=== PATIENT | female | born 2000 | race Caucasian/White ===

== ENCOUNTER 2022-01-25 11:22 | Emergency (ER) | payer BC, OTHER ==
[~2022-01-25] VITALS: Ht 157.5 cm; Wt 54.0 kg
[2022-01-25 11:27] VITALS: BP 106/66
--- NOTE | 2022-01-25 11:35 | NUR ---
Patient ambulated to [facility]
--- NOTE | 2022-01-25 12:45 | NUR ---
PT CLEARED FOR D/C BY DR PAGE. PT LEFT WITHOUT D/C PAPERS, RX OF KEFLEX AND BACTRIM DS SENT TO PTS PHARM[facility],
[2022-01-25] MEDS ORDERED: SULF-59 PO (13:09)
[2022-01-25] MEDS ORDERED: CEPH-588 PO (13:09)
== END 2022-01-25 12:45 | disposition home or self-care (01) ==
LOC: MED 11:22
DX: L02.411 Cutaneous abscess of right axilla (principal); L03.111 Cellulitis of right axilla; Z79.899 Other long term (current) drug therapy; Z90.49 Acquired absence of other specified parts of digestive tract
CPT/HCPCS: 99283

== ENCOUNTER 2022-03-08 07:41 | Emergency (ER) | payer BC ==
[~2022-03-08] VITALS: Ht 157.5 cm; Wt 53.5 kg
[~2022-03-08 07:41] MED LIST: CEPH-588 PO; SULF-59 PO
[2022-03-08 07:58] VITALS: BP 118/79
--- NOTE | 2022-03-08 08:19 | NUR ---
22/F PRESENTS TO ED WITH C/O MID CHEST PAIN SINCE LAST NIGHT, STATES PAIN STARTED WHILE DRIVING AND HAS CONTINUED SINCE. PATIENT DENIES INJURY/TRAUMA, STATES SIMILAR SYMPTOMS IN THE RECENT PAST AND HAS A FOLLOW UP APPOINTMENT WITH HER PCP ON MONDAY. DENIES N/V/D, SOB.
[2022-03-08] MEDS ORDERED: FAMO-92 PO (09:35)
[2022-03-08 09:40] VITALS: BP 118/79
--- NOTE | 2022-03-08 09:41 | NUR ---
Patient discharged with v/s stable. Written and verbal after care instructions ABOUT CHEST WALL PAIN AND ESOPHAGITIS given and explained. Patient alert, oriented and verbalized understanding of instructions. Ambulatory with steady gait. All questions addressed prior to discharge. ID band removed. Patient advised to follow up with PMD. Rx of PEPCID given. Patient educated on indication of medication including possible reaction and side effects. Opportunity to ask questions provided and answered.
== END 2022-03-08 09:41 | disposition home or self-care (01) ==
LOC: MED 07:41
DX: R07.89 Other chest pain (principal); Z79.899 Other long term (current) drug therapy; Z90.49 Acquired absence of other specified parts of digestive tract
CPT/HCPCS: 93005; 99283

== ENCOUNTER 2022-04-25 10:15 | Emergency (ER) | payer BC ==
[~2022-04-25] VITALS: Ht 157.5 cm; Wt 53.6 kg
[~2022-04-25 10:15] MED LIST changes: +FAMO-92 PO
[2022-04-25 10:22] VITALS: BP 122/73
--- NOTE | 2022-04-25 10:30 | NUR ---
22YO FEMALE PT C/O RASH XYESTERDAY. STATES SUDDEN ONSET AFTER "EATING PIZZA" AND INITIALLY STARTING AT [place]IN. PRESENTS WITH REDDENED , ,MILD SWELLING , HOT TO TOUCH FACIAL RASH AROUND MOUTH, NOSE , CHEEKS AND DOWN NECK. DENIES PAIN , N/V/D, CHEST PAIN OR SOB. MILD RELIEF AFTER APPLYING ICE AND ALOE VERA. PT AAOX4, NO VISIBLE DISTRESS. RSPRIATIONS EVEN AND UNLABORED. HX:DENIES NKA
--- NOTE | 2022-04-25 11:06 | NUR ---
WALLY NEIL AT BEDSIDE FOR EVALUATION
[2022-04-25] MEDS ORDERED: LORATADINE 10 MG TAB PO ONE (11:15)
[2022-04-25] MEDS ORDERED: predniSONE 20 MG TAB PO ONE (11:15)
[2022-04-25] MEDS ORDERED: PRED20TA5 PO (11:36)
[2022-04-25] MEDS ORDERED: LORA10SG1 PO (11:36)
[2022-04-25] MEDS ORDERED: BEN50 PO (11:36)
[2022-04-25 11:57] VITALS: BP 124/78
--- NOTE | 2022-04-25 11:57 | NUR ---
Patient discharged with v/s stable. Written and verbal after care instructions FOR RASH given and explained. Patient alert, oriented and verbalized understanding of instructions. Ambulatory with steady gait. All questions addressed prior to discharge. ID band removed. Patient advised to follow up with PMD. Rx of BENADRYL, CLARITIN AND DELTASONE given. Opportunity to ask questions provided and answered.
--- NOTE | 2022-04-25 11:57 | NUR ---
The patient's care was reviewed and supervised by Ac Pink RN.
== END 2022-04-25 11:57 | disposition home or self-care (01) ==
LOC: MED 10:15
DX: R21 Rash and other nonspecific skin eruption (principal)
CPT/HCPCS: 99283; J7512

== ENCOUNTER 2022-06-11 07:51 | Emergency (ER) | payer BC, MEDICAID ==
[~2022-06-11] VITALS: Ht 157.5 cm; Wt 53.6 kg
[~2022-06-11 07:51] MED LIST changes: +BEN50 PO; +LORA10SG1 PO; +PRED20TA5 PO
[2022-06-11 08:06] VITALS: BP 107/62
[2022-06-11] MEDS ORDERED: ONDA-188 SL (08:51)
[2022-06-11] MEDS ORDERED: METO-485 PO (08:51)
--- NOTE | 2022-06-11 09:06 | NUR ---
22 Y/O FEMALE BIB SELF C/O GEN ABD PAIN WITH FOCUS ON THE EPIGASTRIC PAINXTODAY, PER PT [id number] EPISODES, TOOK PEPTO BISMOL WITH MINIMAL RELIEF. DENIES ANY DIARRHEA NKA PMH: DENIES
--- NOTE | 2022-06-11 09:10 | NUR ---
Patient discharged with v/s stable. Written and verbal after care instructions ABOUT NAUSEA AND VOMITING given and explained. Patient alert, oriented and verbalized understanding of instructions. Ambulatory with steady gait. All questions addressed prior to discharge. ID band removed. Patient advised to follow up with PMD. Rx of REGLAN AND ZOFRAN given. Patient educated on indication of medication including possible reaction and side effects. Opportunity to ask questions provided and answered.
== END 2022-06-11 09:10 | disposition home or self-care (01) ==
LOC: MED 07:51
DX: R11.2 Nausea with vomiting, unspecified (principal); R10.13 Epigastric pain; Z79.899 Other long term (current) drug therapy
CPT/HCPCS: 99283

== ENCOUNTER 2022-06-26 15:56 | Emergency (ER) | payer BC, MEDICAID ==
[~2022-06-26] VITALS: Ht 157.5 cm; Wt 54.1 kg
[~2022-06-26 15:56] MED LIST changes: +METO-485 PO; +ONDA-188 SL
[2022-06-26 16:35] VITALS: BP 109/58
--- NOTE | 2022-06-26 16:41 | NUR ---
Ed hughes in [facility] - 06/26/22 at 1642 by MED1 PT AMB TO BED 9
[2022-06-26] MEDS ORDERED: CEPH-588 PO (17:13)
[2022-06-26] MEDS ORDERED: IBUP-2213 PO (17:13)
--- NOTE | 2022-06-26 17:29 | NUR ---
Patient discharged with v/s stable. Written and verbal after care instructions FOR CELLULITIS given and explained. Patient alert, oriented and verbalized understanding of instructions. Ambulatory with steady gait. All questions addressed prior to discharge. ID band removed. Patient advised to follow up with PMD. Rx of KEFLEX AND IBUPROFEN given. Opportunity to ask questions provided and answered.
== END 2022-06-26 17:29 | disposition home or self-care (01) ==
LOC: MED 15:56
DX: L03.112 Cellulitis of left axilla (principal); L98.9 Disorder of the skin and subcutaneous tissue, unspecified; Z79.899 Other long term (current) drug therapy
CPT/HCPCS: 99283

== ENCOUNTER 2022-06-30 09:27 | Emergency (ER) | payer BC ==
[~2022-06-30] VITALS: Ht 157.5 cm; Wt 53.2 kg
[~2022-06-30 09:27] MED LIST changes: +IBUP-2213 PO
[2022-06-30 09:31] VITALS: BP 106/71
[2022-06-30 10:22] LABS: APPEARANCE,URINE CLEAR (CLEAR); BILIRUBIN,URINE NEGATIVE (NEGATIVE); BLOOD, URINE NEGATIVE (NEGATIVE); COLOR,URINE YELLOW (YELLOW); LEUKOCYTE ESTERASE ,URINE TRACE (NEGATIVE); NITRITE, URINE NEGATIVE (NEGATIVE); UGLUCOSE NEGATIVE (NEGATIVE)
--- NOTE | 2022-06-30 10:29 | NUR ---
BIB SELF C/O LIGHT HEADACHE, DIZZINESS X YESTERDAY. DENIES N/V/D;AAOX4 WITH EVEN AND STEADY GAIT; LUNGS CLEAR BL; HR EVEN AND REGULAR; PT DENIES ANY FEVER, CP, SOB, OR COUGH AT THIS TIME; PATIENT STATES PAIN OF 0/10 AT THIS TIME.
[2022-06-30 10:35] LABS: RBC,URINE 0-5 /HPF (0-5); WBC,URINE 0-5 /HPF (0-5)
[2022-06-30] MEDS ORDERED: CARB15DR61 OT (12:07)
[2022-06-30 12:16] VITALS: BP 106/71
--- NOTE | 2022-06-30 12:17 | NUR ---
Patient discharged with v/s stable. Written and verbal after care instructions given and explained. Patient alert, oriented and verbalized understanding of instructions. Ambulatory with steady gait. All questions addressed prior to discharge. ID band removed. Patient advised to follow up with PMD. Rx of carbamide (sent) given. Patient educated on indication of medication including possible reaction and side effects. Opportunity to ask questions provided and answered.
== END 2022-06-30 12:16 | disposition home or self-care (01) ==
LOC: MED 09:27
DX: H61.21 Impacted cerumen, right ear (principal); R42 Dizziness and giddiness; R68.83 Chills (without fever); Z79.899 Other long term (current) drug therapy
CPT/HCPCS: 81001; 81025; 99283

== ENCOUNTER 2022-08-05 21:10 | Emergency (ER) | payer BC ==
[~2022-08-05] VITALS: Ht 157.5 cm; Wt 54.4 kg
[~2022-08-05 21:10] MED LIST changes: +CARB15DR61 OT
[2022-08-05 21:19] VITALS: BP 128/72
--- NOTE | 2022-08-05 21:29 | NUR ---
TO BED 1 FROM TRIAGE
--- NOTE | 2022-08-05 21:41 | NUR ---
Patient resting in bed, A/Ox4, chest rise and fall symmetrical, no s/s of distress.
[2022-08-05] MEDS ORDERED: AMOXIL/CLAVULANATE 875/125 MG 1 TAB PO ONE (23:20)
--- NOTE | 2022-08-05 23:30 | NUR ---
Patient resting in bed, A/Ox4, chest rise and fall symmetrical, no c/o pain or s/s of distress
[2022-08-05] MEDS ORDERED: AMOX1TAB8 PO (23:38)
[2022-08-05] MEDS ORDERED: DEC4 PO (23:39)
[2022-08-05 23:46] VITALS: BP 122/85
== END 2022-08-05 23:46 | disposition home or self-care (01) ==
LOC: MED 21:10
DX: J02.0 Streptococcal pharyngitis (principal)
CPT/HCPCS: 99283

== ENCOUNTER 2022-12-19 10:15 | Emergency (ER) | payer BC ==
[~2022-12-19] VITALS: Ht 157.5 cm; Wt 53.5 kg
[~2022-12-19 10:15] MED LIST changes: +AMOX1TAB8 PO; +DEC4 PO
[2022-12-19 10:23] VITALS: BP 110/70
[2022-12-19] MEDS ORDERED: ACETAMINOPHEN EXTRA STRENGTH 500 MG TAB PO ONE (11:45)
[2022-12-19] MEDS ORDERED: KETOROLAC 30 MG/ML VIAL IM ONE (11:45)
[2022-12-19] MEDS ORDERED: CODE118S PO (14:16)
[2022-12-19] MEDS ORDERED: AZIT250T11 PO (14:16)
--- NOTE | 2022-12-19 14:34 | NUR ---
came in for worsening cough x 1 week, also c/o eye drainage and redness. denies any fever. PMH: denies Allergy: nka
[2022-12-19 14:38] VITALS: BP 111/66
--- NOTE | 2022-12-19 14:39 | NUR ---
Patient discharged with v/s stable. Written and verbal after care instructions given and explained. Patient alert, oriented and verbalized understanding of instructions. Ambulatory with steady gait. All questions addressed prior to discharge. ID band removed. Patient advised to follow up with PMD. Rx of AZITHROMYCIN, GUAIFENESIN W/ CODEINE given. Patient educated on indication of medication including possible reaction and side effects. Opportunity to ask questions provided and answered.
== END 2022-12-19 14:38 | disposition home or self-care (01) ==
LOC: MED 10:15
DX: J20.9 Acute bronchitis, unspecified (principal); Z79.899 Other long term (current) drug therapy
CPT/HCPCS: 71045; 99283

== ENCOUNTER 2023-01-04 10:42 | Emergency (ER) | payer BC ==
[~2023-01-04] VITALS: Ht 157.5 cm; Wt 53.5 kg
[~2023-01-04 10:42] MED LIST changes: +AZIT250T11 PO; +CODE118S PO
[2023-01-04 10:46] VITALS: BP 119/78; PULSE 76; RESP 16; TEMP 97.9; O2SAT 99
--- NOTE | 2023-01-04 10:50 | NUR ---
22 Y/O FEMALE BIB SELF, PATIENT PRESENTS TO ED WITH C/O FEELING DIZZY AND LIGHTHEADED SINC ELAST NIGHT. DENIES SYNCOPAL EPISODE. PT STATES SHE HAS TINGLING IN HANDS AND FEET, BUT WITH SOME IMPROVEMENT SINCE LAST NIGHT . DENIES N/V/D; SKIN IS PINK/WARM/DRY; AAOX4 WITH EVEN AND STEADY GAIT; LUNGS CLEAR BL; HR EVEN AND REGULAR; PT DENIES ANY FEVER, CP, SOB, OR COUGH AT THIS TIME; PATIENT STATES PAIN OF 0/10 AT THIS TIME; VSS; PATIENT POSITIONED FOR COMFORT; HOB ELEVATED; BEDRAILS UP X2; BED DOWN. ER MD MADE AWARE OF PT STATUS. PMH: DENIES NKA
--- NOTE | 2023-01-04 10:52 | NUR ---
pt ambulatory to bed 11
[2023-01-04] MEDS ORDERED: MECLIZINE 25 MG TAB PO ONE (12:30)
[2023-01-04] MEDS ORDERED: PSEUDOEPHEDRINE 30 MG TAB PO ONE (12:30)
[2023-01-04] MEDS ORDERED: MECL-303 PO (14:08)
[2023-01-04] MEDS ORDERED: SUD30 PO (14:08)
--- NOTE | 2023-01-04 14:13 | NUR ---
Patient discharged with v/s stable. Written and verbal after care instructions given and explained. Patient alert, oriented and verbalized understanding of instructions. Ambulatory with steady gait. All questions addressed prior to discharge. ID band removed. Patient advised to follow up with PMD. Rx of MICHAEL REID (SENT) given. Patient educated on indication of medication including possible reaction and side effects. Opportunity to ask questions provided and answered.
[2023-01-04 14:15] VITALS: BP 106/77; PULSE 69; RESP 18; TEMP 97.9; O2SAT 100
--- NOTE | 2023-01-04 14:17 | NUR ---
Note jeremyone in EDM - 01/04/23 at 1417 by [facility] Patient discharged with v/s stable. Written and verbal after care instructions given and explained. Patient alert, oriented and verbalized understanding of instructions. Ambulatory with steady gait. All questions addressed prior to discharge. ID band removed. Patient advised to follow up with PMD. Rx of MICHAEL REID (SENT) given. Patient educated on indication of medication including possible reaction and side effects. Opportunity to ask questions provided and answered.
== END 2023-01-04 14:13 | disposition home or self-care (01) ==
LOC: MED 10:42
DX: H81.392 Other peripheral vertigo, left ear (principal); Z79.899 Other long term (current) drug therapy
CPT/HCPCS: 81025; 93005; 99283; J8597

== ENCOUNTER 2023-02-18 02:54 | Emergency (ER) | payer BC ==
[~2023-02-18] VITALS: Ht 157.5 cm; Wt 52.2 kg
[~2023-02-18 02:54] MED LIST changes: +MECL-303 PO; +SUD30 PO
[2023-02-18 02:58] VITALS: BP 128/74; PULSE 88; RESP 20; TEMP 97.9; O2SAT 99
[2023-02-18] MEDS ORDERED: KETOROLAC 30 MG/ML VIAL IM ONE (06:45)
[2023-02-18] MEDS ORDERED: LIDOCAINE 5% 1 EA PATCH TP ONE (06:45)
[2023-02-18] MEDS ORDERED: IBUP-2213 PO (07:14)
[2023-02-18] MEDS ORDERED: LID5T TP (07:14)
[2023-02-18] MEDS ORDERED: CYCL-711 PO (07:14)
[2023-02-18 07:25] VITALS: BP 106/79; PULSE 74; RESP 17; O2SAT 98
== END 2023-02-18 07:26 | disposition home or self-care (01) ==
LOC: MED 02:54
DX: S29.012A Strain of muscle and tendon of back wall of thorax, initial encounter (principal); S21.209A Unspecified open wound of unspecified back wall of thorax without penetration into thoracic cavity, initial encounter; S29.011A Strain of muscle and tendon of front wall of thorax, initial encounter; Z79.899 Other long term (current) drug therapy; X58.XXXA Exposure to other specified factors, initial encounter; Y93.89 Activity, other specified; Y92.89 Other specified places as the place of occurrence of the external cause; Y99.8 Other external cause status
CPT/HCPCS: 71045; 96372; 99283; J1885

== ENCOUNTER 2023-03-18 21:22 | Emergency (ER) | payer BC ==
[~2023-03-18] VITALS: Ht 157.5 cm; Wt 52.6 kg
[~2023-03-18 21:22] MED LIST changes: +CYCL-711 PO; +LID5T TP
[2023-03-18 21:25] VITALS: BP 144/63; PULSE 55; RESP 22; TEMP 97.4; O2SAT 100
[2023-03-18 22:07] LABS: BASOPHILS # (AUTO) 0.1 K/uL (0.00-0.22); BASOPHILS % (AUTO) 0.5 % (0.0-2.0); EOSINOPHILS # (AUTO) 0.1 K/uL (0-0.4); EOSINOPHILS % (AUTO) 1.1 % (0.0-4.0); HEMATOCRIT 37.9 % (36-48); HEMOGLOBIN 12.9 g/dL (12.0-16.0); LYMPHOCYTES # (AUTO) 3.3 K/uL (2.5-16.5); LYMPHOCYTES % (AUTO) 28.1 % (20.5-51.1); MEAN CORPUSCULAR HEMOGLOBIN 27 pg (27-31); MEAN CORPUSCULAR HGB CONC 34 g/dL (33-37); MEAN CORPUSCULAR VOLUME 80.2 fL (80-94); MONOCYTES # (AUTO) 0.5 K/uL (0.8-1.0); MONOCYTES % (AUTO) 4.4 % (1.7-9.3); NEUTROPHILS # (AUTO) 7.8 K/uL (1.8-7.7); NEUTROPHILS % (AUTO) 65.9 % (42.2-75.2); PLATELET COUNT (AUTO) 369 K/uL (140-450); RED BLOOD CELL COUNT(AUTO) 4.73 MIL/uL (4.20-5.40); RED CELL DISTRIBUTION WIDTH 14.4 % (11.6-13.7); WHITE BLOOD COUNT (AUTO) 11.9 K/uL (4.8-10.8)
[2023-03-18 22:13] LABS: ANION GAP 18.3 (8-16); CALCIUM 8.7 mg/dL (8.5-10.1); CARBON DIOXIDE 21.8 mmol/L (21-32); POTASSIUM 3.1 mmol/L (3.5-5.1)
[2023-03-18 23:05] VITALS: BP 144/63; PULSE 55; RESP 22; TEMP 98; O2SAT 100
== END 2023-03-18 23:05 | disposition home or self-care (01) ==
LOC: MED 21:22
DX: F41.9 Anxiety disorder, unspecified (principal); R07.89 Other chest pain; R00.2 Palpitations; Z79.899 Other long term (current) drug therapy
CPT/HCPCS: 36415; 71045; 80048; 84484; 85025; 93005; 99285

== ENCOUNTER 2023-05-18 19:22 | Emergency (ER) | payer BC, MEDICAID ==
[~2023-05-18] VITALS: Ht 157.5 cm; Wt 52.2 kg
[2023-05-18 19:35] VITALS: BP 130/64; PULSE 90; RESP 17; TEMP 97.8; O2SAT 98
[2023-05-18 21:44] LABS: APPEARANCE,URINE CLEAR (CLEAR); BILIRUBIN,URINE NEGATIVE (NEGATIVE); BLOOD, URINE NEGATIVE (NEGATIVE); COLOR,URINE YELLOW (YELLOW); LEUKOCYTE ESTERASE ,URINE NEGATIVE (NEGATIVE); NITRITE, URINE NEGATIVE (NEGATIVE); PROTEIN,URINE NEGATIVE (NEGATIVE); UGLUCOSE NEGATIVE (NEGATIVE); UROBILINOGEN,URINE 0.2 EU/dL (0.2 - 1)
[2023-05-18] MEDS ORDERED: KETOROLAC 30 MG/ML VIAL ONE (23:42)
[2023-05-18] MEDS ORDERED: KETOROLAC 30 MG/ML VIAL IM ONE (23:45)
[2023-05-18] MEDS ORDERED: METR-435 PO (23:59)
[2023-05-18] MEDS ORDERED: NAPR-54 PO (23:59)
== END 2023-05-19 00:10 | disposition home or self-care (01) ==
LOC: MED 19:22
DX: N76.0 Acute vaginitis (principal); B96.89 Other specified bacterial agents as the cause of diseases classified elsewhere
CPT/HCPCS: 81003; 81025; 87210; 87491; 93005; 96372; 99284; J1885

== ENCOUNTER 2023-06-14 12:29 | Emergency (ER) | payer MEDICAID ==
[~2023-06-14] VITALS: Ht 157.5 cm; Wt 52.2 kg
[~2023-06-14 12:29] MED LIST changes: +METR-435 PO; +NAPR-54 PO
[2023-06-14 13:13] VITALS: BP 103/69; PULSE 76; RESP 18; TEMP 97.8; O2SAT 98
[2023-06-14] MEDS ORDERED: IBUP-2213 PO (15:30)
[2023-06-14] MEDS ORDERED: ACET-2619 PO (15:30)
[2023-06-14 16:45] VITALS: BP 120/72; PULSE 74; RESP 20; TEMP 98.2; O2SAT 98
== END 2023-06-14 16:45 | disposition home or self-care (01) ==
LOC: MED 12:29
DX: S93.402A Sprain of unspecified ligament of left ankle, initial encounter (principal); Z79.899 Other long term (current) drug therapy; Z79.1 Long term (current) use of non-steroidal anti-inflammatories (NSAID); Z79.2 Long term (current) use of antibiotics; X58.XXXA Exposure to other specified factors, initial encounter; Y92.89 Other specified places as the place of occurrence of the external cause; Y93.89 Activity, other specified; Y99.8 Other external cause status
CPT/HCPCS: 73610; 73630; 99284